=== PATIENT | male | born 1945 | race Caucasian/White ===

== ENCOUNTER 2019-07-30 05:43 | Inpatient (IN) ==
[2019-07-30] MEDS ORDERED: Nasal Sanitizer POPSWAB ampule 3 AMP (Nozin) PREOP DOSE ENOS SCH (06:00)
[2019-07-30] MEDS ORDERED: Vancomycin-PHA to Dose IV PRN ×2 (06:00→17:30)
[2019-07-30] MEDS ORDERED: ceFAZolin Inj 2gm (Premix) 2 GM/50 ML BAG IV ONE ×2 (06:00→06:07)
[2019-07-30] MEDS ORDERED: Vancomycin 1.5 gm (Premix) 1.5 GM/300 ML PIGGYBACK IV ONE (06:00)
[2019-07-30] MEDS ORDERED: LIDOCAINE W/ SODIUM BICARB 0.5 ML SYR SUBD ONE (06:00)
[2019-07-30] MEDS ORDERED: Lactated Ringers 1,000 ML PRIMARY IV ONE ×3 (06:00→13:33)
[2019-07-30] MEDS ORDERED: LIDOCAINE W/ SODIUM BICARB 0.5 ML SYR ONE (06:07)
[2019-07-30] MEDS ORDERED: Sodium Chloride 0.9% 250 ML ONE ×2 (06:07→07:23)
[2019-07-30] MEDS ORDERED: Vancomycin Inj 1.25gm vial IV ONE (06:07)
[2019-07-30 06:20] LABS: BILIRUBIN,URINE NEGATIVE (NEG); CLARITY,URINE CLEAR (CLEAR); COLOR,URINE YELLOW (Y); GLUCOSE, URINE (UA) NEGATIVE (NEG); OCCULT BLOOD,URINE NEGATIVE (NEG); PROTEIN,URINE NEGATIVE (NEG); UROBILINOGEN,URINE 0.2 EU/dL (0.2)
[2019-07-30 06:21] LABS: URINE SAMPLE TYPE CLEAN CATCH URINE
[2019-07-30] MEDS ORDERED: LIDOCAINE HCL 2 % 10 ML JELLY URO-JECT TOPICAL ONE (06:58)
[2019-07-30] MEDS ORDERED: Sodium Chloride 0.9% vial 20 ML ONE (06:58)
[2019-07-30] MEDS ORDERED: BACITRACIN 50,000 UNIT VIAL IRRIG ONE ×2 (06:59→14:24)
[2019-07-30] MEDS ORDERED: Propofol 2,000 MG/200 ML VIAL IV ONE ×2 (07:17→11:33)
[2019-07-30] MEDS ORDERED: MIDAZOLAM 5 MG/1 ML ONE (07:18)
[2019-07-30] MEDS ORDERED: KETAMINE 100 MG/1 ML - 5 ML ONE (07:18)
[2019-07-30] MEDS ORDERED: LIDOCAINE MPF 2% - 5 ML (20 MG/1 ML) ONE (07:18)
[2019-07-30] MEDS ORDERED: fentaNYL Inj 250 MCG/5 ML VIAL ONE (07:18)
[2019-07-30] MEDS ORDERED: REMIFENTANIL 1 MG/1 ML IV ONE ×2 (07:23→11:20)
[2019-07-30] MEDS ORDERED: REMIFENTANIL HCL 2 MG VIAL IV ONE ×2 (07:23→11:20)
[2019-07-30] MEDS ORDERED: DEXMEDETOMIDINE HCL 200 MCG/2 ML VIAL IV ONE (07:49)
[2019-07-30] MEDS ORDERED: BUPIVACAINE 0.25% W/ EPI - 10 ML VIAL ONE (08:35)
[2019-07-30] MEDS ORDERED: LIDOCAINE HCL 2 % 10 ML JELLY URO-JECT TOPICAL PRN (08:43)
[2019-07-30] MEDS ORDERED: DEXAMETHASONE PF 10 MG/1 ML VIAL ONE (08:57)
[2019-07-30] MEDS ORDERED: PROPOFOL 10 MG/1 ML (200 MG/20 ML) VIAL IV ONE ×2 (10:18→12:33)
[2019-07-30] MEDS ORDERED: ceFAZolin 1 GM VIAL ONE (11:42)
[2019-07-30] MEDS ORDERED: Acetaminophen 1000mg Inj 1,000 MG/100 ML VIAL IV ONE (11:51)
[2019-07-30] MEDS ORDERED: Sodium Chloride 0.9% vial 10 ML ONE (14:24)
[2019-07-30] MEDS ORDERED: HYDROmorphone 2 MG/1 ML ONE ×2 (14:50→16:26)
[2019-07-30] MEDS: HYDROmorphone 2 MG/1 ML IVP PRN ×3 (16:30→16:48)
[2019-07-30] MEDS ORDERED: HYDROmorphone 2 MG/1 ML IVP PRN (17:30)
[2019-07-30] MEDS ORDERED: PROMETHAZINE 25 MG/1 ML VIAL IM PRN (17:30)
[2019-07-30] MEDS ORDERED: MAGNESIUM CITRATE 296 ML SOLUTION PO PRN (17:30)
[2019-07-30] MEDS ORDERED: Ondansetron ODT Tab 4 MG TAB PO PRN (17:30)
[2019-07-30] MEDS ORDERED: HYDROcodone-APAP 7.5 MG-325 MG TABLET PO PRN (17:30)
[2019-07-30] MEDS ORDERED: BISACODYL 5 MG TABLET PO PRN (17:30)
[2019-07-30] MEDS ORDERED: DOCUSATE 100 MG CAPSULE PO PRN (17:30)
[2019-07-30] MEDS ORDERED: Prochlorperazine Edisylate Inj 10mg/2ml vial IVP PRN (17:30)
[2019-07-30] MEDS ORDERED: ONDANSETRON 4 MG/2 ML VIAL IVP PRN (17:30)
[2019-07-30] MEDS ORDERED: DIAZEPAM 10 MG/2 ML (5 MG/1 ML) CARPUJECT IVP PRN (17:30)
[2019-07-30] MEDS ORDERED: DIAZEPAM 5 MG TABLET PO PRN (17:30)
[2019-07-30] MEDS ORDERED: MORPHINE SULFATE 2 MG/1 ML IVP PRN (17:30)
[2019-07-30] MEDS ORDERED: MAGNESIUM 400 MG/5 ML - 30 ML (MILK OF MAGNESIA) PO PRN (17:30)
[2019-07-30] MEDS ORDERED: LIDOCAINE W/ SODIUM BICARB 0.5 ML SYR SUBD PRN (17:30)
[2019-07-30] MEDS ORDERED: Fleet Enema 133ml RECTAL PRN (17:30)
[2019-07-30] MEDS ORDERED: HYDROcodone-APAP 5 MG -325 MG TABLET PO PRN (17:30)
[2019-07-30] MEDS: ceFAZolin Inj 2gm (Premix) 2 GM/50 ML BAG IV SCH (18:54)
[2019-07-31] MEDS: HYDROcodone-APAP 10 MG-325 MG TABLET PO PRN ×5 (00:48→16:31)
[2019-07-31] MEDS: ceFAZolin Inj 2gm (Premix) 2 GM/50 ML BAG IV SCH ×2 (00:48→10:16)
[2019-07-31 04:54] LABS: BASOPHILS # (AUTO) 0.01 10*3/UL; BASOPHILS % (AUTO) 0.1 % (0-1); EOSINOPHILS # (AUTO) 0.01 10*3/UL; EOSINOPHILS % (AUTO) 0.1 % (0-8); Hematocrit [HCT] 43.1 % (42.0-52.0); Hemoglobin [HGB] 14.2 g/dL (14.0-18.0); LYMPHOCYTES # (AUTO) 1.76 10*3/uL; MEAN CORPUSCULAR HGB CONC 32.9 g/dL (33-37); MEAN CORPUSCULAR VOLUME 91.3 FL (80-90); MEAN PLATELET VOLUME 9.5 FL (7.4-12.2); MONOCYTES # (AUTO) 1.76 10*3/UL (0.3-0.8); MONOCYTES % (AUTO) 9.7 % (5-15); NEUTROPHILS # (AUTO) 14.61 10*3/UL; NEUTROPHILS % (AUTO) 80.1 % (50-80); RED BLOOD COUNT 4.72 10^6/uL (4.70-6.10)
[2019-07-31 05:00] LABS: PLATELET MORPHOLOGY COMMENT NORMAL MORPHOLOGY (NORM); RBC MORPHOLOGY COMMENT NORMAL MORPHOLOGY (NORM); WBC MORPHOLOGY COMMENT NORMAL MORPHOLOGY (NORM)
[2019-07-31 05:04] LABS: BLOOD UREA NITROGEN 17 mg/dL (7-22); BUN/CREATININE RATIO 18.88 (6-20)
[2019-07-31] MEDS ORDERED: LISINOPRIL 20 MG TABLET PO SCH (09:00)
[2019-07-31] MEDS ORDERED: HYDROCHLOROTHIAZIDE 12.5 MG CAPSULE PO SCH (09:00)
[2019-07-31 13:05] VITALS: BP 150/79; RESP 24; TEMP 97.9; O2SAT 92
[2019-07-31] MEDS ORDERED: oxyCODONE/APAP 10/325 Tab 1 EACH TAB PO SCH (16:30)
[2019-07-31] MEDS ORDERED: HYDROcodone-APAP 10 MG-325 MG TABLET PO SCH (16:45)
== END 2019-07-31 14:50 | disposition home or self-care (01) | DRG 473 ==
LOC: OPS 05:43 → MED/SURG 17:06
PROVIDERS: ADMIT Neurological Surgery; ATTEND Neurological Surgery